=== PATIENT | female | born 1950 | race Caucasian/White ===

== ENCOUNTER 2021-05-10 10:35 | Outpatient (REF) | payer MEDICARE, SELFPAY ==
--- NOTE | ~2021-05-10 | CT_ITS ---
EXAMINATION: CT SINUS WITHOUT CONTRAST CLINICAL INFORMATION: Nasal polyps. COMPARISON: None TECHNIQUE: 2 mm thin axial and reformatted, 2 mm thin sagittal and coronal images of sinuses were obtained. This CT examination was performed using dose optimization techniques as appropriate, variously including the following: Automated exposure control. Adjustment of mA and/or kV according to patient size (this includes techniques or standardized protocols for targeted exams where dose is matched to indication/reason for exam; i.e. extremities or head). Use of iterative reconstruction technique. DLP: 99 mGy-cm FINDINGS: FRONTAL SINUSES AND DRAINAGE PATHWAYS: There is patchy mucoperiosteal thickening bilateral frontal sinuses with mild ostial mucosal thickening of frontoethmoidal recess. MAXILLARY SINUSES AND DRAINAGE PATHWAYS: There is near-complete opacification of right maxillary sinus and [id number] mucoperiosteal thickening left maxillary sinus. Bilateral ostiomeatal complex are obstructed most on the right from mucosal thickening. ETHMOID SINUSES: There is diffuse mucoperiosteal thickening involving bilateral ethmoid sinuses. The ethmoid roofs are symmetric, with olfactory fossa depth of 0.40 cm on the right and 0.24 cm on the left. SPHENOID SINUSES AND DRAINAGE PATHWAYS: There is mild mucoperiosteal thickening of sphenoid sinuses. NASAL CAVITY/NASOPHARYNX: The nasal cavity is clear. There is mild deviation of nasal septum to the left without bony spurring. The nasopharynx is symmetric. ADDITIONAL RELEVANT FINDINGS: No periapical disease is seen. The TMJs articulate normally. The orbits and skull base soft tissues are unremarkable. The middle ear cavities and mastoid air cells are clear. Limited evaluation demonstrates no acute intracranial findings. CT/CT sinus wo con IMPRESSION: Chronic pansinusitis with obstructed bilateral frontoethmoidal and bilateral ostiomeatal complexes. Mild deviation of nasal septum to the left without bony spurring. The nasal cavity and nasopharyngeal airway is patent.
== END 2021-05-10 10:36 | disposition home or self-care (01) ==
LOC: HO.CT 10:35
PROVIDERS: Visit Provider Otolaryngology
DX: J33.9 Nasal polyp, unspecified (principal)
CPT/HCPCS: 70486